=== PATIENT | male | born 1980 | race Caucasian/White ===

== ENCOUNTER 2016-08-29 02:17 | Emergency (ER) | payer SELFPAY ==
[~2016-08-29 02:17] MED LIST: CYCL-36 PO; TYLE500T PO; Z.0.NO CURRENT MEDS
[2016-08-29 02:25] VITALS: BP 132/83; PULSE 135; RESP 20; TEMP 98.2; O2SAT 96
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
[2016-08-29] MEDS ORDERED: EQUE100C PO (02:36)
[2016-08-29] MEDS ORDERED: LISD70 PO (02:36)
[2016-08-29] MEDS ORDERED: THIAMINE INJ 100 MG in SODIUM CHLORIDE 0.9% INJ 100 ML IV ONE (02:45)
[2016-08-29] MEDS ORDERED: SODIUM CHLOR 0.9% 1000 ML INJ 1,000 ML IV ONE ×2 (02:45)
[2016-08-29 02:57] LABS: AUTOMATED NEUTROPHIL # 3.4 TH/MM3 (1.8-7.7); BASOPHIL # 0.1 TH/MM3 (0-0.2); BASOPHIL % 0.8 % (0.0-2.0); EOSINOPHIL # 0.1 TH/MM3 (0-0.4); EOSINOPHIL % 1.6 % (0.0-4.0); HEMATOCRIT 45.6 % (39.0-51.0); HEMO FLAGS DIFF FINAL; LYMPH % 38.5 % (9.0-44.0); LYMPHOCYTE # 2.5 TH/MM3 (1.0-4.8); MEAN CORPUSCULAR HEMOGLOBIN 29.3 PG (27.0-34.0); MEAN CORPUSCULAR HGB CONC 34.4 % (32.0-36.0); NEUT % 52.1 % (16.0-70.0); PLATELET COUNT 233 TH/MM3 (150-450); RED BLOOD COUNT 5.36 MIL/MM3 (4.50-5.90); RED CELL DISTRIBUTION WIDTH 15.1 % (11.6-17.2); WHITE BLOOD COUNT 6.5 TH/MM3 (4.0-11.0)
[2016-08-29] MEDS ORDERED: diphenhydrAMINE HCL 50 MG/ML VIAL IM ONE (03:15)
[2016-08-29] MEDS ORDERED: LORazepam 2 MG/ML VIAL IM ONE (03:15)
[2016-08-29] MEDS ORDERED: HALOPERIDOL LACTATE 5 MG/ML AMP IM ONE (03:15)
[2016-08-29 03:27] LABS: ALKALINE PHOSPHATASE 80 U/L (45-117); TOTAL BILIRUBIN ADULT 0.3 MG/DL (0.2-1.0)
[2016-08-29 03:47] LABS: ALT (GPT) 22 U/L (12-78); ANION GAP 9 MEQ/L (5-15); AST (GOT) 30 U/L (15-37); BICARBONATE 24.9 MEQ/L (21.0-32.0); BLOOD UREA NITROGEN 11 MG/DL (7-18); CHLORIDE 112 MEQ/L (98-107); GLOMERULAR FILTRATION RATE 64 ML/MIN (>89); SODIUM (NA) 146 MEQ/L (136-145)
[2016-08-29 03:56] VITALS: PULSE 97
[2016-08-29 05:39] VITALS: PULSE 94; O2SAT 96
[2016-08-29 07:04] VITALS: BP 95/54; PULSE 85; RESP 15; O2SAT 95
[2016-08-29 08:53] LABS: AMPHETAMINE, URINE NEG (NEG); BARBITURATES, URINE NEG (NEG); COCAINE, URINE NEG (NEG)
[2016-08-29] MEDS ORDERED: DIAZ10 PO (10:34)
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
== END 2016-08-29 14:55 | disposition home or self-care (01) ==
LOC: NEPC 02:17
DX: F10.129 Alcohol abuse with intoxication, unspecified (principal)
CPT/HCPCS: 80053; 80307; 85025; 96365; 96372; 99285; J1200; J1630; J2060; J3411; J7030

== ENCOUNTER 2017-02-14 20:32 | Emergency (ER) | payer OTHER ==
[~2017-02-14 20:32] MED LIST changes: -CYCL-36 PO; +DIAZ10 PO; +EQUE100C PO; +LISD70 PO; -TYLE500T PO; -Z.0.NO CURRENT MEDS
[2017-02-14 20:40] VITALS: BP 126/84; PULSE 134; RESP 22; TEMP 97.9; O2SAT 96
[2017-02-14] MEDS ORDERED: LEXA20TA PO (20:48)
[2017-02-14] MEDS ORDERED: KETAMINE HCL 500 MG/5 ML VIAL IM ONE (21:00)
[2017-02-14] MEDS ORDERED: LORazepam 2 MG/ML VIAL IV PUSH ONE (21:00)
[2017-02-14 21:35] VITALS: PULSE 139; RESP 20; O2SAT 95
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
--- NOTE | 2017-02-14 22:11 | RADRPT ---
EXAM DATE/TIME: 02/14/2017 21:09 [facility] COMPARISON: CT BRAIN W/O CONTRAST, September 24, 2010, 11:23. INDICATIONS : Trauma; forehead contusion. Patient intoxicated. RADIATION DOSE: 56.35 CTDIvol (mGy) MEDICAL HISTORY : Non-responsive. SURGICAL HISTORY : Non-responsive. ENCOUNTER: Initial ACUITY: 1 day PAIN SCALE: Non-responsive LOCATION: cranial TECHNIQUE: Multiple contiguous axial images were obtained of the head. Using automated exposure control and adj ustment of the mA and/or kV according to patient size, radiation dose was kept as low as reasonably a chievable to obtain optimal diagnostic quality images. DICOM format image data is available electro nically for review and comparison. FINDINGS: CEREBRUM: The ventricles are normal for age. No evidence of midline shift, mass lesion, hemorrhage or acute in farction. No extra-axial fluid collections are seen. POSTERIOR FOSSA: The cerebellum and brainstem are intact. The 4th ventricle is midline. The cerebellopontine angle i s unremarkable. EXTRACRANIAL: Anterior frontal scalp contusion. The visualized portion of the orbits is intact. SKULL: The calvaria is intact. No evidence of skull fracture. CONCLUSION: Anterior frontal scalp contusion. No acute intracranial findings. Delon Espinal MD on February 14, 2017 at 22:07 Board Certified Radiologist. This report was verified electronically.
[2017-02-14 22:57] VITALS: BP 140/74; PULSE 126; RESP 18; O2SAT 99
[2017-02-14] MEDS ORDERED: SODIUM CHLOR 0.9% 1000 ML INJ 1,000 ML IV ONE ×2 (23:00)
[2017-02-14 23:12] LABS: AUTOMATED NEUTROPHIL # 10.8 TH/MM3 (1.8-7.7); BASOPHIL # 0.1 TH/MM3 (0-0.2); BASOPHIL % 0.5 % (0.0-2.0); EOSINOPHIL % 0.1 % (0.0-4.0); HEMATOCRIT 46.7 % (39.0-51.0); HEMOGLOBIN 15.7 GM/DL (13.0-17.0); MEAN CELL VOLUME 89.1 FL (80.0-100.0); MEAN CORPUSCULAR HGB CONC 33.7 % (32.0-36.0); MONO % 9.2 % (0.0-8.0); MONOCYTE # 1.3 TH/MM3 (0-0.9); NEUT % 76.2 % (16.0-70.0); PLATELET COUNT 234 TH/MM3 (150-450); RED BLOOD COUNT 5.24 MIL/MM3 (4.50-5.90); RED CELL DISTRIBUTION WIDTH 14.1 % (11.6-17.2); WHITE BLOOD COUNT 14.2 TH/MM3 (4.0-11.0)
[2017-02-14 23:33] LABS: BICARBONATE 23.6 MEQ/L (21.0-32.0); CALCIUM 8.3 MG/DL (8.5-10.1); CREATININE 1.23 MG/DL (0.60-1.30)
[2017-02-14 23:35] VITALS: BP 128/64; PULSE 120; RESP 18; O2SAT 94
[2017-02-15] MEDS ORDERED: ONDANSETRON HCL 4 MG/2 ML VIAL IV ONE
== END 2017-02-15 00:28 | disposition home or self-care (01) ==
LOC: NEPE 20:32
DX: S00.83XA Contusion of other part of head, initial encounter (principal); W22.01XA Walked into wall, initial encounter; Y92.009 Unspecified place in unspecified non-institutional (private) residence as the place of occurrence of the external cause
CPT/HCPCS: 70450; 80048; 85025; 96361; 96372; 96374; 96375; 99285; J2060; J2405; J7030